=== PATIENT | male | born 1995 | race Caucasian/White ===

== ENCOUNTER 2023-08-09 00:36 | Emergency (ER) | payer OTHER ==
[~2023-08-09] VITALS: Ht 180.3 cm; Wt 86.2 kg
[2023-08-09 00:46] VITALS: BP_SYST 145; BP_SYST 150; PULSE 87; PULSE 88; RESP 18; RESP 20; TEMP 98; TEMP 98.6; O2SAT 97; O2SAT 98
[2023-08-09] MEDS ORDERED: ALUM320O4 PO (01:08)
== END 2023-08-09 01:13 | disposition home or self-care (01) ==
LOC: SED 00:36
DX: J38.4 Edema of larynx (principal); Z03.823 Encounter for observation for suspected inserted (injected) foreign body ruled out; Z79.899 Other long term (current) drug therapy
CPT/HCPCS: 70360; 99283